=== PATIENT | male | born 1960 | race Caucasian/White ===

== ENCOUNTER 2021-02-22 07:33 | Outpatient (REF) | payer BC, SELFPAY ==
[2021-02-22 10:35] LABS: INTERNATIONAL NORM RATIO 4.4 (0.9-1.1); Prothrombin Time 51.5 SEC (9.9-13.0)
== END 2021-02-22 07:34 | disposition home or self-care (01) ==
LOC: HO.10HDL 07:33
PROVIDERS: Visit Provider Internal Medicine
DX: I48.0 Paroxysmal atrial fibrillation (principal)
CPT/HCPCS: 36415; 85610

== ENCOUNTER 2021-02-24 06:02 | Outpatient (REF) | payer BC, SELFPAY ==
[2021-02-24 11:31] LABS: INTERNATIONAL NORM RATIO 2.6 (0.9-1.1)
== END 2021-02-24 06:03 | disposition home or self-care (01) ==
LOC: HO.HMGCLDS 06:02
PROVIDERS: PCP Internal Medicine; Visit Provider Internal Medicine
DX: I48.91 Unspecified atrial fibrillation (principal)
CPT/HCPCS: 36415; 85610

== ENCOUNTER 2021-02-28 06:47 | Outpatient (REF) | payer BC, SELFPAY ==
[2021-02-28 11:49] LABS: INTERNATIONAL NORM RATIO 2.8 (0.9-1.1); Prothrombin Time 32.5 SEC (9.9-13.0)
== END 2021-02-28 06:48 | disposition home or self-care (01) ==
LOC: HO.HMGCLDS 06:47
PROVIDERS: PCP Internal Medicine; Visit Provider Internal Medicine
DX: I48.91 Unspecified atrial fibrillation (principal)
CPT/HCPCS: 36415; 85610

== ENCOUNTER 2021-03-07 06:05 | Outpatient (REF) | payer BC, SELFPAY ==
[2021-03-07 11:42] LABS: INTERNATIONAL NORM RATIO 4.4 (0.9-1.1); Prothrombin Time 51.9 SEC (9.9-13.0)
== END 2021-03-07 06:06 | disposition home or self-care (01) ==
LOC: HO.HMGCLR 06:05
PROVIDERS: PCP Internal Medicine; Visit Provider Internal Medicine
DX: I48.91 Unspecified atrial fibrillation (principal)
CPT/HCPCS: 36415; 85610

== ENCOUNTER 2021-03-14 06:04 | Outpatient (REF) | payer BC, SELFPAY ==
[2021-03-14 12:17] LABS: INTERNATIONAL NORM RATIO 1.9 (0.9-1.1); Prothrombin Time 21.6 SEC (9.9-13.0)
== END 2021-03-14 06:05 | disposition home or self-care (01) ==
LOC: HO.HMGCLR 06:04
PROVIDERS: PCP Internal Medicine; Visit Provider Internal Medicine
DX: I48.91 Unspecified atrial fibrillation (principal)
CPT/HCPCS: 36415; 85610

== ENCOUNTER → 2021-09-29 07:26 | Outpatient (REF) | payer BC, SELFPAY ==
--- NOTE | 2021-09-29 07:31 | CA_ITS ---
Transthoracic Echocardiogram Patient (Last, First, Middle): Roberto Menjivar N Gender: Male Date of : 1960 Age: 61 Procedure Date: 09/29/2021 Procedure Type: Transthoracic Echocardiogram Location: OP Height: 195.58 cm Weight: 101.15 kg BSA: 2.34 m2 Heart Rate: bpm BP: 140 / 76 mmHg Business Development Consultant: SB Referring MD: Vilma Harris MD Section Leader And Machine Setter: Delgado Subramanian MD Symptoms: ISCHEMIC CARDIOMYOPATHY Study Quality: Fair ECG Rhythm: Bradycardia Conclusions: - 1. Normal LV systolic function with pseudonormal filling pattern 2. Moderately dilated left atrium 3. Normally functioning mechanical aortic prosthetic valve with mean gradient of 10 mmHg 4. At least moderate mitral regurgitation 5. Normal RV systolic pressure 6. No gross pericardial effusion Findings Left Ventricle Normal left ventricular size, thickness, and systolic function. The visually estimated ejection fraction is between 60-65%. Spectral Doppler is indicative of a pseudonormal filling pattern. Right Ventricle Normal right ventricular cavity size. There is borderline right ventricular systolic function. Atria The left atrium is moderately dilated. There is no evidence of interatrial shunt. The right atrium is mildly dilated. Aortic Valve A mechanical prosthetic aortic valve is present. The prosthetic aortic valve appears to be functioning normally. The mean gradient is 10 mmHg. There is trace (trivial) aortic valve regurgitation. the valve is well seated with no abnormal rocking motion Mitral Valve There is mild anterior and posterior mitral leaflet thickening. There is moderate mitral valve regurgitation. There is no mitral valve stenosis. the mitral regurgitation appears very eccentric and hugging the mitral leaflets. Quantitated regurgitation volume is 35 mL Pulmonic Valve The pulmonic valve was not well visualized. Tricuspid Valve Likely normal tricuspid valve structure and function. There is mild tricuspid valve regurgitation. The right ventricular systolic pressure is normal. The right ventricular systolic pressure is 29 mmHg. Normal right atrial pressure. There is no evidence of pulmonary hypertension. Great Vessels All visible segments of the aorta are normal in size. The pulmonary artery was not well visualized. Venous The inferior vena cava is normal in size and collapses greater than 50% with inspiration. Pericardium/Pleural There is no evidence of pericardial effusion. Prior Study Comparison No prior study available for comparison. Measurements 2D Linear Measurements IVSd: 1.17 0.6-0.9/0.6-1.0 cm LVIDd: 6.28 3.9-5.3/4.2-5.9 cm LVIDd Index: 2.68 2.4-3.2/2.2-3.1 cm/m2 LVIDs: 4.00 2.0-3.6 cm LVPWd: 0.94 0.7-1.1 cm LA Diam: 4.90 2.7-3.8/3.0-4.0 cm LAIDs Index: 2.09 1.5-2.3 cm/m2 LV Mass: 355.54 67-162/88-224 g LV Mass Index: 151.94 43-95/49-115 g/m2 LVOT Diam: 2.10 3.0+(-)1.3 cm Mitral Valve MV Pk E: 1.09 MV PK A: 0.54 MV Decel Time: 219.00 E/A: 2.00 E'Lateral: 9.36 E'Medial: 6.31 E/E' Med: 17.30 E/E' Lat: 11.60 PHT: 64.00 MVA PHT: 3.44 Decel Moody: 4.99 MR Vol - PW Dopp: 35.19 MR VTI: 2.07 MR ERO: 17.00 MR Alias Dereck: 0.39 MR RAD: 0.60 Aortic Valve AoV Pk Dereck: 2.20 AoV Mn Dereck: 1.43 AoV VTI: 0.45 AoV Pk Grad: 19.00 Aov Mn Grad: 10.00 RASHAD Cont.VTI: 1.54 LVOT LVOT Pk Dereck: 0.87 LVOT Mn Dereck: 0.58 LVOT VTI: 0.20 LVOT Pk Grad: 3.00 LVOT Mn Grad: 2.00 LVOT Diam: 2.10 LVOT Area: 3.46 Diastolic Function MV Pk E: 1.09 MV Pk A: 0.54 E/A: 2.00 E'Medial: 6.31 E/E' Med: 17.30 E' Laterial: 9.36 E/E' Lat: 11.60 Right Ventricle TAPSE (mm): 16.00 TVS' Dereck: 8.80 Tricuspid Valve TR Pk Dereck: 2.54 TR Pk Grad: 26.00 RA Press: 3.00 RVSP: 29.00 Great Vessels Aorta Sinus of Valsalva: 2.70 2.0-3.[address] Ridge: 2.65 1.7-3.4 cm Ao Asc: 3.10 2.1-3.4 cm Ao Arch: 3.50 Pulmonary Veins Pulm Vein S/D 0.50 Pulmonary Valve PV Pk Dereck: 1.05 Peak PV Grad: 4.00 Updated in Other Vendor System with Status of Final Delgado Subramanian MD electronically signed on 09/29/2021 4:03:04 PM with status of Final
== END ==
LOC: HO.CARD 07:26
PROVIDERS: Visit Provider Internal Medicine Cardiovascular Disease
DX: R06.00 Dyspnea, unspecified (principal); Z95.2 Presence of prosthetic heart valve
CPT/HCPCS: 93306

== ENCOUNTER → 2022-06-20 15:37 | Outpatient (REF) | payer BC, SELFPAY ==
--- NOTE | 2022-06-20 15:40 | CA_ITS ---
Transthoracic Echocardiogram Patient (Last, First, Middle): Roberto Menjivar N Gender: Male Date of : 1960 Age: 62 Procedure Date: 06/20/2022 Procedure Type: Transthoracic Echocardiogram Location: OP Height: 195.58 cm Weight: 105.69 kg BSA: 2.39 m2 Heart Rate: bpm BP: 132 / 80 mmHg Milling Supervisor: Referring MD: Vilma Harris MD Tailor Garment Fitter: Delgado Subramanian MD Symptoms: AORTIC VALVE DISEASE I35.[address] OMAR Study Quality: Adequate ECG Rhythm: Sinus Conclusions: - 1. Low normal LV systolic function with LVEF of 50-55% with moderate LVH with pseudonormal filling pattern 2. Moderately dilated left atrium 3. Normally function mechanical aortic valve with slightly increased gradient compared to last measurement at 14 mmHg 4. Upper limits of normal RV systolic pressure 5. [id number] mitral regurgitation 6. No gross pericardial effusion Findings Left Ventricle Normal left ventricular cavity size. There is moderately increased left ventricular wall thickness. The left ventricular systolic function is low normal. The visually estimated ejection fraction is between 50-55%. Spectral Doppler is indicative of a pseudonormal filling pattern. Right Ventricle Mildly increased right ventricular cavity size. There is normal right ventricular systolic function. Atria The left atrium is moderately dilated. There is no evidence of interatrial shunt. The right atrium is likely dilated. Aortic Valve A mechanical prosthetic aortic valve is present. The prosthetic aortic valve appears to be functioning normally. The aortic valve was not well visualized. The mean gradient is 14 mmHg. There is no aortic valve regurgitation. Mitral Valve There is mild anterior and posterior mitral leaflet thickening. There is mild to moderate mitral valve regurgitation. The mitral regurgitation jet is directed posteriorly. There is no mitral valve stenosis. Pulmonic Valve The pulmonic valve is normal. There is trace pulmonic valve regurgitation. Tricuspid Valve Normal tricuspid valve structure. There is mild tricuspid valve regurgitation. There is no evidence of pulmonary hypertension. Great Vessels All visible segments of the aorta are normal in size. The pulmonary artery was not well visualized. Venous The inferior vena cava is normal in size and collapses greater than 50% with inspiration. Pericardium/Pleural There is no evidence of pericardial effusion. Prior Study Comparison Changes noted compared to prior study dated: 09/29/2021. Mean gradient across the mechanical valve as increased to 14 mmHg Measurements 2D Linear Measurements IVSd: 1.41 0.6-0.9/0.6-1.0 cm LVIDd: 5.12 3.9-5.3/4.2-5.9 cm LVIDd Index: 2.14 2.4-3.2/2.2-3.1 cm/m2 LVIDs: 3.64 2.0-3.6 cm LVPWd: 1.45 0.7-1.1 cm Ao Root: 2.90 2.1-3.5 cm LA Diam: 4.60 2.7-3.8/3.0-4.0 cm LAIDs Index: 1.92 1.5-2.3 cm/m2 LV Mass: 388.91 67-162/88-224 g LV Mass Index: 162.72 43-95/49-115 g/m2 LVOT Diam: 2.40 3.0+(-)1.3 cm 2D Systolic Function EF 4C: 53.00 >55% EF 2C: 56.40 >55% EF BiP: 52.50 >55% Mitral Valve MV Pk E: 0.57 MV PK A: 0.92 MV Decel Time: 239.00 E/A: 0.60 E'Lateral: 8.92 E'Medial: 8.70 E/E' Med: 6.60 E/E' Lat: 6.40 PHT: 70.00 MVA PHT: 3.14 Decel Buchanan: 4.24 Aortic Valve AoV Pk Dereck: 2.73 AoV Mn Dereck: 1.67 AoV VTI: 0.58 AoV Pk Grad: 30.00 Aov Mn Grad: 14.00 RASHAD Cont.VTI: 2.19 LVOT LVOT Pk Dereck: 1.13 LVOT Mn Dereck: 0.78 LVOT VTI: 0.28 LVOT Pk Grad: 5.00 LVOT Mn Grad: 3.00 LVOT Diam: 2.40 LVOT Area: 4.52 Diastolic Function MV Pk E: 0.57 MV Pk A: 0.92 E/A: 0.60 E'Medial: 8.70 E/E' Med: 6.60 E' Laterial: 8.92 E/E' Lat: 6.40 Right Ventricle TAPSE (mm): 26.00 TVS' Dereck: 13.00 Tricuspid Valve TR Pk Dereck: 2.87 TR Pk Grad: 33.00 RA Press: 3.00 RVSP: 36.00 Great Vessels Aorta Ao Root-2D: 2.90 2.0-3.7 cm Ao Asc: 3.10 2.1-3.4 cm Pulmonary Valve PV Pk Dereck: 1.21 Peak PV Grad: 6.00 Updated in Other Vendor System with Status of Final Delgado Subramanian MD electronically signed on 06/21/2022 9:27:14 AM with status of Final
== END ==
LOC: HO.CARD 15:37
PROVIDERS: PCP Internal Medicine; Visit Provider Internal Medicine Cardiovascular Disease
DX: I35.0 Nonrheumatic aortic (valve) stenosis (principal)
CPT/HCPCS: 93306

== ENCOUNTER 2022-07-28 08:36 | Outpatient (REF) | payer BC, SELFPAY ==
[2022-07-28 10:48] LABS: INTERNATIONAL NORM RATIO 2.4 (0.9-1.1); Prothrombin Time 28.2 SEC (10.0-13.1)
== END 2022-07-28 08:37 | disposition home or self-care (01) ==
LOC: HO.LAB 08:36
PROVIDERS: PCP Internal Medicine; Visit Provider Internal Medicine Cardiovascular Disease
DX: I35.0 Nonrheumatic aortic (valve) stenosis (principal)
CPT/HCPCS: 36415; 85610

== ENCOUNTER 2022-08-04 08:32 | Outpatient (REF) | payer BC, SELFPAY ==
[2022-08-04 09:11] LABS: Prothrombin Time 23.3 SEC (10.0-13.1)
== END 2022-08-04 08:33 | disposition home or self-care (01) ==
LOC: HO.LAB 08:32
PROVIDERS: PCP Internal Medicine; Visit Provider Internal Medicine
DX: Z95.2 Presence of prosthetic heart valve (principal)
CPT/HCPCS: 36415; 85610

== ENCOUNTER → 2022-09-18 08:55 | Outpatient (REF) | payer BC, SELFPAY ==
--- NOTE | 2022-09-18 09:02 | CA_ITS ---
Transthoracic Echocardiogram Patient (Last, First, Middle): Roberto Menjivar N Gender: Male Date of : 1960 Age: 62 Procedure Date: 09/18/2022 Procedure Type: Transthoracic Echocardiogram Location: OP Height: 195.58 cm Weight: 95.71 kg BSA: 2.29 m2 Heart Rate: bpm BP: 145 / 85 mmHg Supervisor Melt House: FRANK Referring MD: Vilma Harris MD Construction Plumber: Delgado Subramanian MD Symptoms: S/P AV REPLACEMENT DYSPNEA Study Quality: Fair ECG Rhythm: Sinus Conclusions: - 1. Low normal LV systolic function with mild LVH with grade 1 diastolic dysfunction 2. Mildly dilated left atrium 3. Normally functioning mechanical aortic prosthesis sees with mean gradient of 9 mmHg 4. Normal RV systolic pressure 5. Mild mitral regurgitation 6. No gross pericardial effusion Findings Left Ventricle Normal left ventricular cavity size. There is mildly increased left ventricular wall thickness. The left ventricular systolic function is low normal. The visually estimated ejection fraction is between 50-55%. There is paradoxical septal motion consistent with post-operative status. Spectral Doppler is indicative of an impaired relaxation filling pattern. E/E prime ratio is <8, consistent with normal filling pressures. Evidence suggests grade I (mild) diastolic dysfunction. Right Ventricle Normal right ventricular cavity size. There is mild to moderately decreased right ventricular systolic function. Atria The left atrium is mildly dilated. Interatrial shunt cannot be excluded. The right atrium is normal in size. Aortic Valve A mechanical prosthetic aortic valve is present. The prosthetic aortic valve appears to be functioning normally. The mean gradient is 9 mmHg. There is no aortic valve regurgitation. Mitral Valve There is mild anterior and posterior mitral leaflet thickening. There is mild mitral valve regurgitation. There is no mitral valve stenosis. Pulmonic Valve The pulmonic valve is likely normal. There is trace to mild pulmonic valve regurgitation. Tricuspid Valve Likely normal tricuspid valve structure and function. There is mild tricuspid valve regurgitation. The right ventricular systolic pressure is normal. The right ventricular systolic pressure is 17 mmHg. There is no evidence of pulmonary hypertension. Great Vessels The pulmonary artery was not well visualized. Venous The inferior vena cava is normal in size. Pericardium/Pleural There is no evidence of pericardial effusion. Prior Study Comparison Changes noted compared to prior study dated: 06/20/2022. Diastolic function seems to have improved, left atrium is mildly dilated on this study. RV systolic pressures are normal Measurements 2D Linear Measurements IVSd: 1.26 0.6-0.9/0.6-1.0 cm LVIDd: 4.01 3.9-5.3/4.2-5.9 cm LVIDd Index: 1.75 2.4-3.2/2.2-3.1 cm/m2 LVIDs: 2.80 2.0-3.6 cm LVPWd: 1.14 0.7-1.1 cm LA Diam: 3.70 2.7-3.8/3.0-4.0 cm LAIDs Index: 1.62 1.5-2.3 cm/m2 LV Mass: 206.85 67-162/88-224 g LV Mass Index: 90.33 43-95/49-115 g/m2 LVOT Diam: 2.40 3.0+(-)1.3 cm 2D Systolic Function EF 4C: 46.50 >55% EF 2C: 52.50 >55% Mitral Valve MV Pk E: 0.57 MV PK A: 0.76 MV Decel Time: 342.00 E/A: 0.80 E'Lateral: 8.16 E'Medial: 7.18 E/E' Med: 7.90 E/E' Lat: 7.00 PHT: 100.00 MVA PHT: 2.20 Decel Citrus: 1.66 Aortic Valve AoV Pk Dereck: 1.94 AoV Mn Dereck: 1.37 AoV VTI: 0.40 AoV Pk Grad: 15.00 Aov Mn Grad: 9.00 RASHAD Cont.VTI: 2.79 LVOT LVOT Pk Dereck: 1.20 LVOT Mn Dereck: 0.84 LVOT VTI: 0.25 LVOT Pk Grad: 6.00 LVOT Mn Grad: 4.00 LVOT Diam: 2.40 LVOT Area: 4.52 Diastolic Function MV Pk E: 0.57 MV Pk A: 0.76 E/A: 0.80 E'Medial: 7.18 E/E' Med: 7.90 E' Laterial: 8.16 E/E' Lat: 7.00 Right Ventricle TAPSE (mm): 14.70 TVS' Dereck: 8.93 Tricuspid Valve TR Pk Dereck: 1.88 TR Pk Grad: 14.00 RA Press: 3.00 RVSP: 17.00 Great Vessels Aorta Sinus of Valsalva: 4.50 2.0-3.5 cm Ao Asc: 3.70 2.1-3.4 cm Pulmonary Valve PV Pk Dereck: 1.05 Peak PV Grad: 4.00 Updated in Other Vendor System with Status of Final Delgado Subramanian MD electronically signed on 09/19/2022 9:04:38 AM with status of Final
== END ==
LOC: HO.CARD 08:55
PROVIDERS: PCP Internal Medicine; Visit Provider Internal Medicine Cardiovascular Disease
DX: R06.00 Dyspnea, unspecified (principal)
CPT/HCPCS: 93306